=== PATIENT | male | born 1950 | race Caucasian/White ===

== ENCOUNTER → 2016-03-14 | Day surgery (SDC) | payer BC ==
[2016-03-06 11:03] VITALS: BMI 33.0
[~2016-03-14] VITALS: Ht 172.7 cm; Wt 100.0 kg
[~2016-03-14] MED LIST: LIDOCAINE HCL 2% 2 ML VIAL (20MG/ML) ONE; NO HOME MEDS; PROPOFOL IV EMULSION 10 MG/ML 20 ML VIAL IV ONE; SODIUM CHLORIDE 0.9% 500ML 500 ML IV ONE
[2016-03-14 12:41] VITALS: Ht 172.7 cm; Wt 100.0 kg
--- NOTE | 2016-03-14 12:55 | Endo History and Physical ---
History & Physical Date of Service: Mar 14, 2016. Chief Complaint: SCREENING FOR COLON CANCER Referring Physician: DR RUSH PEREZ History of Present Illness 66 yo CF who presents for screening colonoscopy. Past Surgical History Hx Cardiac Surgery: No Hx Internal Defibrillator: No Hx Pacemaker: No Hx Abdominal Surgery: Yes (UMBILICAL HERNIA) Hx of Implantable Prosthesis: No Hx Post-Op Nausea and Vomiting: No Hx Cancer Surgery: No Hx Thoracic Surgery: No Hx Orthopedic: No Hx Urinary Tract Surgery: No Family History None Social History Smoking Status: Heavy Tobacco Smoker Hx Substance Use: No Hx Alcohol Use: Yes (2 DRINKS DAILY) Allergies Coded Allergies: No Known Allergies (Verified , 03/06/16) Current Medications Reported Home Medications Medications Dose Route/Sig Max Daily Dose Days Date Category [No Home Meds] 03/14/16 Reported Vital Signs Weight (Kilograms): 100.00 Height (Feet): 5 Height (Inches): 8 Date Time Temp Pulse Resp B/P Pulse Ox O2 Delivery O2 Flow Rate FiO2 03/14/16 12:38 36.6 62 18 165/95 96 Room Air Physical Exam General Appearance: WD/WN, no apparent distress Respiratory/Chest: Auscultation: breath sounds normal Cardiovascular: Heart Auscultation: RRR Abdomen: Bowel Sounds: normal Inspection & Palpation: soft, non-distended, no tenderness, guarding & rebound Assessment and Plan Assessment: 66 yo CF who presents for screening colonoscopy. Plan: Proceed with colonoscopy.
--- NOTE | 2016-03-14 13:32 | Discharge Instructions ---
Endoscopy Patient Instructions Date / Procedure(s) Performed Mar 14, 2016. Colonoscopy Allergy Information Coded Allergies: No Known Allergies (Verified , 03/06/16) Discharge Date / Findings Mar 14, 2016. Colon polyps Rectal polyp Diverticulosis Internal hemorrhoids Medication Instructions OK to resume all medications today as prescribed Reported Home Medications Medications Dose Route/Sig Max Daily Dose Days Date Category [No Home Meds] 03/14/16 Reported Provider Instructions Activity Restrictions - No exercising or heavy lifting for 24 hours. - Do not drink alcohol the day of the procedure. - Do not drive a car or operate machinery until the day after the procedure. - Do not make any important decisions or sign important papers in 24 hours after the procedure. Following Day: - Return to full activity which may include returning to work/school. Diet Start your diet with liquids and light foods (jello, soup, juice, toast). Then eat your usual diet if not nauseated. Treatment For Common After Affects For mild abdominal pain, bloating, or excessive gas: - Rest - Eat lightly - Lie on right side Follow-Up Information Follow-up with DR RUSH PEREZ as scheduled Anesthesia Information What You Should Know You have had a procedure that required some medicine to reduce anxiety and discomfort. This treatment is called moderate sedation. After receiving the treatment, you may be sleepy, but you will be able to breathe on your own. The effects of the treatment may last for several hours. Follow these instructions along with Activity/Diet recommendations noted above: * Do NOT do anything where dizziness or clumsiness would be dangerous. * Rest quietly at home today, then you can be up and about tomorrow. * Have a responsible person stay with you the rest of today. * You may have had an I.V. today. If so, you may take the dressing off later today. Recommendations Call your doctor if: * Trouble breathing * Continuous vomiting for more than 24 hours * Temperature above 101 degrees * Severe abdominal pain or bloating * Pain not relieved by pain medicine ordered * There is increased drainage or redness from any incision * A large amount of rectal bleeding greater than 2-3 tablespoons. (If you had a polyp/s removed or have hemorrhoids, a small amount of blood - from the rectum is to be expected.) * You have any unanswered questions or concerns. IN THE EVENT OF A SERIOUS EMERGENCY, GO TO THE NEAREST EMERGENCY ROOM Your discharge instructions were prepared by provider Rodger Ponce. Patient Instructions Signature Page Frantz Daniel Patient (or Guardian) Signature/Date: I have read and understand the instructions given to me by my caregivers. Caregiver/RN/Doctor Signature/Date: The above-named patient and/or guardian has received patient instructions on this date. + Original Patient Signature Page (only) stays with chart. Please make copy for patient.
--- NOTE | 2016-03-14 13:44 | GI REPORT ---
Procedure Date: 03/14/2016 1:06 PM Procedure: Colonoscopy Indications: Screening for colorectal malignant neoplasm Medicines: Monitored Anesthesia Care Complications: No immediate complications. Estimated Blood Loss: Estimated blood loss: none. Procedure: Pre-Anesthesia Assessment: - Prior to the procedure, a History and Physical was performed, and patient medications and allergies were reviewed. The patient's tolerance of previous anesthesia was also reviewed. The risks and benefits of the procedure and the sedation options and risks were discussed with the patient. All questions were answered, and informed consent was obtained. Prior Anticoagulants: The patient has taken no previous anticoagulant or antiplatelet agents. ASA Grade Assessment: II - A patient with mild systemic disease. After reviewing the risks and benefits, the patient was deemed in satisfactory condition to undergo the procedure. After I obtained informed consent, the scope was passed under direct vision. Throughout the procedure, the patient's blood pressure, pulse, and oxygen saturations were monitored continuously. The On-site loaner was introduced through the anus and advanced to the terminal ileum. The colonoscopy was performed without difficulty. The patient tolerated the procedure well. The quality of the bowel preparation was good. The terminal ileum, ileocecal valve, appendiceal orifice, and rectum were photographed. Findings: Five sessile polyps were found in the rectum and in the ascending colon. The polyps were 4 to 6 mm in size. These polyps were removed with a hot snare. Resection and retrieval were complete. Multiple small-mouthed diverticula were found in the sigmoid colon. Non-bleeding internal hemorrhoids were found during retroflexion. The hemorrhoids were small. Impression: - Five 4 to 6 mm polyps in the rectum and in the ascending colon, removed with a hot snare. Resected and retrieved. - Diverticulosis in the sigmoid colon. - Non-bleeding internal hemorrhoids. Recommendation: - Resume previous diet. - Continue present medications. - Repeat colonoscopy for surveillance based on pathology results. - Return to primary care physician as previously scheduled. Rodger Ponce, DO 03/14/2016 1:44:11 PM This report has been signed electronically. Note Initiated On: 03/14/2016 1:06 PM
--- NOTE | 2016-03-14 13:54 | Anesthesiology Progress Note ---
Anesthesia Post Op Note Date & Time Mar 14, 2016 at 13:54 Vital Signs Pain Intensity: 0 Vital Signs Past 12 Hours Date Time Temp Pulse Resp B/P Pulse Ox O2 Delivery O2 Flow Rate FiO2 03/14/16 13:49 53 20 133/86 98 Room Air 03/14/16 13:36 55 20 130/68 95 Room Air 03/14/16 12:38 36.6 62 18 165/95 96 Room Air Notes Mental Status: alert / awake / arousable, participated in evaluation Pt Amnestic to Procedure: Yes Nausea / Vomiting: adequately controlled Pain: adequately controlled Airway Patency, RR, SpO2: stable & adequate BP & HR: stable & adequate Hydration State: stable & adequate Anesthetic Complications: no major complications apparent
[2016-03-14 14:07] VITALS: BP 163/81; PULSE 52; O2SAT 98
== END | disposition home or self-care (01) ==
LOC: C.GI 12:15
PROVIDERS: ATTEND Internal Medicine
DX: Z12.11 Encounter for screening for malignant neoplasm of colon (principal); D12.2 Benign neoplasm of ascending colon; K63.5 Polyp of colon; K57.30 Diverticulosis of large intestine without perforation or abscess without bleeding; K64.8 Other hemorrhoids

== ENCOUNTER → 2016-03-19 | Outpatient (CLI) | payer BC ==
[~2016-03-19] MED LIST changes: -LIDOCAINE HCL 2% 2 ML VIAL (20MG/ML) ONE; -PROPOFOL IV EMULSION 10 MG/ML 20 ML VIAL IV ONE; -SODIUM CHLORIDE 0.9% 500ML 500 ML IV ONE
[2016-03-19 11:29] LABS: BASO % 0.4 %; BASO ABS # 0.03 K/uL (0-0.2); COMPLETE YES; EOS % 2.9 %; HEMATOCRIT 41.5 % (42-52); IG% 0.4 %; LYMPH % 39.3 %; LYMPH ABS # 2.87 K/uL (1.2-3.4); MEAN CELL VOLUME 94.5 fL (80-100); MEAN CORPUSCULAR HEMOGLOBIN 32.6 pg (25-34); MEAN CORPUSCULAR HGB CONC 34.5 g/dl (32-36); MEAN PLATELET VOLUME 10.7 fL (7.4-10.4); MONO % 9.8 %; NEUT % 47.2 %; PLATELET COUNT 256 K/uL (130-400); RED BLOOD COUNT 4.39 M/uL (4.7-6.1); WHITE BLOOD COUNT 7.31 K/uL (4.8-10.8)
[2016-03-19 11:51] LABS: ALT/SGPT 30 U/L (12-78); AST/SGOT 16 U/L (15-37); BLOOD UREA NITROGEN 13 mg/dl (7-18); BUN/CREATININE RATIO 11.7 (10-20); CALCIUM 8.7 mg/dl (8.5-10.1); CARBON DIOXIDE 26 mmol/L (21-32); CHLORIDE 108 mmol/L (98-107); CHOLESTEROL 234 mg/dl (0-200); GLUCOSE 112 mg/dl (70-99); SODIUM 143 mmol/L (136-145); TRIGLYCERIDES 213 mg/dl (0-150); VERY LOW DENSITY LIPOPROT CALC 43 mg/dl
[2016-03-19 11:55] LABS: ALB/GLOB RATIO 1.1 (0.9-2); ALKALINE PHOSPHATASE 73 U/L (45-117); CHOLESTEROL/HDL RATIO 4.3; HDL CHOLESTEROL 54 mg/dl; LDL CHOLESTEROL CALCULATED 137 mg/dl; PROSTATE SPECIFIC ANTIGEN 0.509 ng/ml (0.000-4.000)
[2016-03-19 12:37] LABS: ESTIMATED AVERAGE GLUCOSE 131 mg/dl; HA1C FLAG Normal (Normal)
--- NOTE | 2016-03-23 11:49 | CODING QUERY MEDICAL NECESSITY ---
CQSUPPORTING DIAGNOSIS NEEDED A supporting diagnosis is required for the test/procedure performed on this patient in order for us to be reimbursed by the patient's insurance. Please provide a supporting diagnosis for the following test/procedure listed below next to the test name along with your signature. *If there is no additional diagnosis for this patient that would support the following test/procedure please document that below next to the test/procedure. Test(s)/Procedure(s) that require a supporting diagnosis: DOS 03/19/16 PROSTATE SPECIFIC TEST Provider Signature: Date: Thank you Kelsy Collazo [employer] Once completed, please kindly fax back to [phone] For questions please call [phone]
== END | disposition home or self-care (01) ==
LOC: C.LABBC 08:17
PROVIDERS: ATTEND Internal Medicine
DX: R93.8 Abnormal findings on diagnostic imaging of other specified body structures (principal); R73.9 Hyperglycemia, unspecified; Z12.5 Encounter for screening for malignant neoplasm of prostate

== ENCOUNTER → 2016-11-26 | Outpatient (CLI) | payer BC ==
--- NOTE | 2016-11-27 06:20 | PAP/PSG TECHNICIAN REPORT ---
[facility] Senior Back End Java Developer Polysomnogram Report Study name: None Report date: 11/27/2016 Study date: 11/26/2016 Referring Physician: DR. Julisa PEREZ Name: ALLEN HUSSEIN Interpreting Physician: Dino Ritchie M.D. Date of : 1950 Senior Back End Java Developer: Susan Espino RPSGT. Sex: Male Age: 66 Study Type: PSG PAP Weight: 227 lbs Height: 66 years, Height 5' 7" BMI: 35.55 Medications: MULTI VIT, NAPROXEN 220 MG, VIT D 2000 UNIT Patient History 66 yr-old male here for a new CPAP treatment study. He was found to be positive for NGOC via a home sleep study. His AHI was roughly 18 for the two-night study. He chose a Simplus full face mask size medium from [employer]. The test was started on room air and 4 CMH2O. ETCO2 testing was not utilized during this study. Room 1 Parameters Monitored NPSG: E1-M2, E2-M1, Fp1-M2, Fp2-M1, F3-M2, F4-M2, F4-M1, C3-M2, C4-M2, C4-M1, O1-M2, O2-M2, O2-M1, T3-M2, T4-M1, P3-M2, P4-M1, CHIN1, CHIN2, HR, EKG, Legs, PFLOW, SNOR, FLOW, CFLOW, Tidal Volume, THOR, ABDO, SpO2, PLTH, CPRESS, ETCO2 Wave, ETCO2, pH Sleep Architecture Sleep Stages Time at Lights Off 10:26:35 PM STAGES Time (min.) TST (%) Time at Lights On 5:30:35 AM Wake 148.0 -- Total Recording Time (TRT) 424.00 min. N1 108.5 39 Total Sleep Period (TSP) 411.5 min. N2 113.5 41 Total Sleep Time (TST) 276.0min. N3 0.5 0 Awake Time 148.0 min. REM 53.5 19 Wake after Sleep Onset 135.5 min. Sleep Efficiency (SE) 65 % Sleep Onset Latency (NORIS) 12.5 min. Number of Stage 1 Shifts None Awakenings 53 Stage Changes 145 Number of REM periods 1 REM 53.5 19 REM Latency 297.5 min. NREM 222.5 81 Body Position Analysis Supine Right Left Side Prone Vertical Total Sleep Time (min.) 53.8 78.7 181.5 260.17 0.0 0.0 Total Sleep Time (%) 6% 29% 66% 94 0% N/A% Total Sleep Time REM (min.) 0.0 0.0 53.5 None 0.0 0.0 Total Sleep Time NREM (min.) 15.8 78.7 128.0 None 0.0 0.0 Intermittent Wake (min.) 38.0 72.4 37.6 None 0.0 0.0 Total Sleep Period (%) 13% None None None None None Arousals Myoclonus (PLM) * Events Count Index Events Count Index Spontaneous 37 8 Events Awake (PLMW) 142 57.6 Respiratory 64 15.9 Events Asleep w/ Arousal (PLMA) 4 0.9 PLM 4 1 Events Asleep w/o Arousal (PLMS) 45 9.8 Snoring 4 1 Total Asleep 49 10.7 Total 109 24 Total 191 27 Respiratory Analysis * CA OA MA CH H RERA Total Count 3 25 2 0 61 11 91 Index 0.7 5.4 0.4 0 13.3 2 22.2 Mean Duration 12.9 17.3 13.6 0.00 15.1 17.1 15.8 Longest Duration 15.5 24.4 16.5 0.00 16.5 20.4 24.6 Respiratory Event Summary Total Supine ~Supine Right Left Prone REM NREM Apneas Count 30 1 29 29 0 N/A 0 30 Index 6.5 4 7 22.1 0.0 N/A 0 8 Hypopneas (4% Desat) Count 61 10 51 50 1 N/A 0 61 Index 13.3 37.9 12 38.1 0.3 N/A 0.0 16.4 Apneas & All Hypopneas Count 91 11 80 79 1 N/A 0 91 Index 19.8 42 18 60 0 N/A 0.0 24.5 Respiratory Events (Toilet Attendant+All Hyp+RERA) Count 91 11 91 87 4 N/A 0 91 Index 22.2 42 21 66.3 1.3 N/A 0.0 27.5 Respiratory Related Arousal Count 64 11 68 65 3 N/A 0 73 Index 15.9 19 16 50 1 N/A 0 20 Snoring Analysis Supine Right Left Prone REM NREM Total Snore duration 16.1 min Snores count 88 292 407 N/A 3 784 787 Snore mean duration 1.2 Sec Snores index 333 223 135 N/A 3.4 211.4 171.1 TST with snoring (%) 5.8% Desaturation Event Summary: Minimum %SpO2 Event Count Mean/Min/Max Duration(sec.) Desaturation Index % Time In Bed > 90 175 21.8 / 6.5 / 59.8 29.4 84.3 86 - 90 1 14.8 / 14.8 / 14.8 0.9 15.5 81 - 85 0 N/A 0.0 0.1 76 - 80 0 N/A 0.0 0.0 71 - 75 0 N/A 0.0 0.0 66 - 70 0 N/A 0.0 0.0 61 - 65 0 N/A 0.0 0.0 56 - 60 0 N/A 0.0 0.0 51 - 55 0 N/A 0.0 0.0 < 50 0 N/A 0.0 0.0 Total REM NREM Awake <50% 0.0 min. 0.0 min. 0.0 min. 0.0 min. 51 - 60% 0.0 min. 0.0 min. 0.0 min. 0.0 min. 61 - 70% 0.0 min. 0.0 min. 0.0 min. 0.0 min. 71 - 80% 0.0 min. 0.0 min. 0.0 min. 0.0 min. 81 - 90% 66.2 min. 2.8 min. 54.3 min. 9.1 min. 91 - 100% 356.8 min. 50.7 min. 168.2 min. 137.9 min. Average 93 93 92 93 Minimum SpO2 84 90 84 85 Desaturation Event Index 24.8 0.0 28.9 30.4 # Desat. Events below 89% 34 N/A 31 3 Time(%) with Saturation below 89% 1.0 0.0 0.7 0.3 Time(min.) with Saturation below 89% 4.4 0.0 3.2 1.3 Time (mins) REM (mins) NREM (mins) % of TST SpO2 Below 90% 76 N/A N76 7.1 SpO2 Below 88% 9 0 0 1 Heart Rate Analysis Min (bpm) Max (bpm) Average (bpm) Awake 52 96 67 NREM 51 83 60 REM 51 73 55 Overall 51 83 59 Supplemental O2 Values Minimum O2 level: None Value Start Time End Time Senior Back End Java Developer Comments Mr. Hussein slept in the right, left, and supine positions. No cardiac arrhythmias were noted. PLMs were noted. No bruxism noted. CPAP was initiated at +4 CMH2O and up-titrated to a level of +13 CMH2O, Cflex 2. A Simplus full face mask size medium from [employer] was used during titration He did not wake up to use the restroom during the night. Mr. Hussein stated that he slept poorly. The final report will be interpreted and signed by a sleep physician. The completed physician report will then be placed in the patient medical record. Therapy Event: Therapy (cm H20) 4 5 6 8 10 12 13 Total Time at Pressure (min.) 0.0 106.9 115.6 32.9 33.7 79.7 55.2 TST at Pressure (min.) 0.0 51.4 55.1 22.9 17.7 77.7 51.2 # Periods 1 1 1 1 1 1 1 Sleep Onset (min.) N/A 12.5 0.0 0.0 0.0 0.0 0.0 REM Onset (min.) N/A N/A N/A N/A N/A 20.8 N/A Sleep Efficiency % N/A 48 47 69 52 97 92 Wakefulness (%) 0.0 51.9 52.3 30.3 47.6 2.5 7.3 Wakefulness (min.) 0.0 55.5 60.5 10.0 16.0 2.0 4.0 NREM 1 (%) 0.0 18.2 31.6 62.1 43.0 9.2 18.4 NREM 1 (min.) 0.0 19.5 36.6 20.4 14.5 7.3 10.2 NREM 2 (%) 0.0 29.9 15.6 7.6 9.4 21.1 74.3 NREM 2 (min.) 0.0 31.9 18.1 2.5 3.2 16.8 41.0 NREM 3 (%) 0.0 0.0 0.4 0.0 0.0 0.0 0.0 NREM 3 (min.) 0.0 0.0 0.5 0.0 0.0 0.0 0.0 REM (%) 0.0 0.0 0.0 0.0 0.0 67.1 0.0 REM (min.) 0.0 0.0 0.0 0.0 0.0 53.5 0.0 # Arousals N/A 17 41 25 11 6 9 Arousal Index N/A 19.8 44.6 65.5 37.4 4.6 10.6 # Snore N/A 348 211 86 32 50 60 Snore Index N/A 405.9 229.6 225.1 108.8 38.6 70.4 AHI N/A 2.3 34.8 86.4 47.6 3.9 5.9 AHI Supine N/A 20.0 N/A N/A N/A 62.6 37.3 AHI Non-Supine N/A 1.2 34.8 86.4 47.6 0.0 0.0 NREM AHI N/A 2.3 34.8 86.4 47.6 12.4 5.9 REM AHI N/A N/A N/A N/A N/A 0.0 N/A RDI N/A 4.7 43.5 86.4 47.6 3.9 7.0 # Obstructive N/A 0 4 16 5 0 0 # Central Ap N/A 1 1 0 1 0 0 # Mixed N/A 0 1 0 1 0 0 # Hypopneas N/A 1 26 17 7 5 5 RERAS N/A 2 8 0 0 0 1 Total Respiratory Events N/A 4 40 33 14 5 6 Time Below SpO2 89.00% (min.) 0.0 0.1 1.1 1.4 0.6 0.0 0.0 Mean NREM SpO2 (%) N/A 91 92 92 92 92 94 Mean REM SpO2 (%) N/A N/A N/A N/A N/A 93 N/A Mean Sleep SpO2 (%) N/A 91 92 92 92 92 94 Min NREM SpO2 (%) N/A 88 84 84 86 89 91 Min REM SpO2 (%) N/A N/A N/A N/A N/A 90 N/A Position Supine (min.) 0.0 3.0 0.0 0.0 0.0 4.8 8.0 Position Non-supine (min.) 0.0 48.4 55.1 22.9 17.7 72.9 43.1 LM Index Sleep N/A 18.7 9.8 18.3 13.6 6.2 5.9 LM Index NREM N/A 18.7 9.8 18.3 13.6 2.5 5.9 LM Index REM N/A N/A N/A N/A N/A 7.9 N/A Mean Heart Rate (bpm) N/A 67 61 58 58 56 56 Min Heart Rate (bpm) N/A 59 53 55 54 51 51
== END | disposition home or self-care (01) ==
LOC: C.NEUR 21:00
PROVIDERS: ATTEND Internal Medicine
DX: G47.33 Obstructive sleep apnea (adult) (pediatric) (principal)